=== PATIENT | male | born 1980 | race African-American/Black ===

== ENCOUNTER 2018-04-30 12:52 | Emergency (ER) | payer OTHER ==
[~2018-04-30] VITALS: Ht 170.2 cm; Wt 85.7 kg
[~2018-04-30 12:52] MED LIST: FLAGYL500 MG PO
[2018-04-30 13:37] LABS: URINE BILIRUBIN NEGATIVE (Negative); URINE BLOOD NEGATIVE (Negative); URINE CLARITY CLEAR; URINE COLOR YELLOW; URINE GLUCOSE-RANDOM* NEGATIVE (Negative); URINE KETONES NEGATIVE (Negative); URINE NITRITE-REFLEX NEGATIVE (Negative); URINE PROTEIN (DIPSTICK) NEGATIVE (Negative); URINE UROBILINOGEN 0.2 E.U./dl (0.2-1.0)
[2018-04-30 13:38] LABS: URINE LEUKOCYTES-REFLEX 1+ (Negative)
[2018-04-30 13:49] LABS: BACTERIA-REFLEX None Seen /HPF (None Seen); CASTS None Seen /LPF (None Seen); CRYSTALS None Seen /LPF (None Seen); SQUAMOUS None Seen /LPF (0-3); URINE RBC 0-2 Rare /HPF (0-2)
[2018-04-30 15:35] VITALS: BP 142/70
== END 2018-04-30 15:15 | disposition home or self-care (01) ==
LOC: ER 12:52
PROVIDERS: Emergency Medicine
DX: Z20.2 Contact with and (suspected) exposure to infections with a predominantly sexual mode of transmission (principal); Z87.891 Personal history of nicotine dependence

== ENCOUNTER 2018-06-16 00:59 | Emergency (ER) | payer OTHER ==
[~2018-06-16] VITALS: Ht 172.7 cm; Wt 83.9 kg
[2018-06-16 02:15] VITALS: BP 150/100
== END 2018-06-16 02:15 | disposition home or self-care (01) ==
LOC: ER 00:59
PROVIDERS: Student in an Organized Health Care Education/Training Program
DX: A64 Unspecified sexually transmitted disease (principal); Z87.891 Personal history of nicotine dependence